=== PATIENT | female | born 1955 | race Two or more races ===

== ENCOUNTER 2016-12-03 22:04 | Emergency (ER) | payer OTHER ==
[~2016-12-03] VITALS: Ht 162.6 cm; Wt 70.8 kg
[2016-12-03 22:05] VITALS: BP 173/95
[2016-12-03] MEDS ORDERED: ONDANSETRON ODT 4 MG ONE (22:48)
[2016-12-03] MEDS ORDERED: KETOROLAC 30 MG/1 ML ONE (22:48)
[2016-12-03] MEDS ORDERED: ONDANSETRON ODT 4 MG PO ONE (23:00)
[2016-12-03] MEDS ORDERED: KETOROLAC 30 MG/1 ML IM ONE (23:00)
== END 2016-12-03 23:41 | disposition home or self-care (01) ==
LOC: ED 22:30
DX: S52.572A Other intraarticular fracture of lower end of left radius, initial encounter for closed fracture (principal); W18.30XA Fall on same level, unspecified, initial encounter; Y93.89 Activity, other specified; Y99.8 Other external cause status; Y92.009 Unspecified place in unspecified non-institutional (private) residence as the place of occurrence of the external cause
CPT/HCPCS: 29125; 73110; 96372; 99284; J1885; Q0162

== ENCOUNTER → 2018-02-18 | Outpatient (CLI) | payer BC | END | disposition home or self-care (01) | LOC: CFH 08:15 | PROVIDERS: ATTEND Family Medicine | DX: R92.2 Inconclusive mammogram (principal); Z80.3 Family history of malignant neoplasm of breast | CPT/HCPCS: 77066 ==